=== PATIENT | female | born 1985 | race Caucasian/White ===

== ENCOUNTER 2017-11-22 17:30 | Outpatient (CLI) | payer OTHER | END 2017-11-22 17:54 | disposition home or self-care (01) | LOC: CIR.AMB 17:30 → RAD 17:30 | DX: M99.01 Segmental and somatic dysfunction of cervical region (principal); M99.02 Segmental and somatic dysfunction of thoracic region; M99.03 Segmental and somatic dysfunction of lumbar region ==

== ENCOUNTER 2018-01-19 11:21 | Outpatient (CLI) | payer OTHER | END 2018-01-19 11:37 | disposition home or self-care (01) | LOC: MRI 11:21 | DX: M54.2 Cervicalgia (principal); M54.12 Radiculopathy, cervical region | CPT/HCPCS: 72141 ==

== ENCOUNTER 2018-01-31 07:23 | Outpatient (CLI) | payer OTHER ==
[~2018-01-31] VITALS: Ht 157.5 cm; Wt 48.1 kg
== END 2018-01-31 07:40 | disposition home or self-care (01) ==
LOC: OFIC 805 07:23
DX: H93.13 Tinnitus, bilateral (principal); J38.1 Polyp of vocal cord and larynx

== ENCOUNTER 2018-12-17 14:42 | Outpatient (CLI) | payer OTHER | END 2018-12-17 14:50 | disposition home or self-care (01) | LOC: SONOGRAMA 14:42 → MAMO-SONO 15:15 | DX: N91.1 Secondary amenorrhea (principal) ==

== ENCOUNTER 2018-12-27 07:26 | Outpatient (CLI) | payer OTHER | END 2018-12-27 07:28 | disposition home or self-care (01) | LOC: SONOGRAMA 07:26 → MAMO-SONO 07:45 | DX: Z34.01 Encounter for supervision of normal first pregnancy, first trimester (principal) ==

== ENCOUNTER 2022-05-06 08:45 | Outpatient (CLI) | payer OTHER | END 2022-05-06 11:00 | disposition home or self-care (01) | LOC: PRENATAL 08:45 | PROVIDERS: ATTEND Obstetrics & Gynecology Maternal & Fetal Medicine | DX: O36.80X0 Pregnancy with inconclusive fetal viability, not applicable or unspecified (principal); O09.529 Supervision of elderly multigravida, unspecified trimester; Z3A.14 14 weeks gestation of pregnancy ==

== ENCOUNTER 2022-06-09 09:17 | Outpatient (CLI) | payer OTHER | END 2022-06-09 10:25 | disposition home or self-care (01) | LOC: PRENATAL 09:17 | PROVIDERS: ATTEND Obstetrics & Gynecology Maternal & Fetal Medicine | DX: O35.9XX0 Maternal care for (suspected) fetal abnormality and damage, unspecified, not applicable or unspecified (principal); O35.3XX0 Maternal care for (suspected) damage to fetus from viral disease in mother, not applicable or unspecified; Z3A.19 19 weeks gestation of pregnancy ==

== ENCOUNTER 2022-09-08 10:32 | Outpatient (CLI) | payer OTHER | END 2022-09-08 12:12 | disposition home or self-care (01) | LOC: PRENATAL 10:32 | PROVIDERS: ATTEND Obstetrics & Gynecology Maternal & Fetal Medicine | DX: O26.849 Uterine size-date discrepancy, unspecified trimester (principal); O36.8199 Decreased fetal movements, unspecified trimester, other fetus; O09.529 Supervision of elderly multigravida, unspecified trimester; Z3A.32 32 weeks gestation of pregnancy ==